=== PATIENT | female | born 1985 | race Caucasian/White ===

== ENCOUNTER → 2019-01-30 | Outpatient (CLI) | payer BC ==
[~2019-01-30] MED LIST: MACROBID100 M1 PO; METHERGINE0.2 M1 PO; Motrin,Rufen800 MG PO
== END | disposition home or self-care (01) ==
LOC: US 15:00
DX: Z34.81 Encounter for supervision of other normal pregnancy, first trimester (principal); Z3A.01 Less than 8 weeks gestation of pregnancy

== ENCOUNTER → 2019-02-22 | Outpatient (CLI) | payer BC | END | disposition home or self-care (01) | LOC: US 06:29 | DX: O02.1 Missed abortion (principal); N93.9 Abnormal uterine and vaginal bleeding, unspecified ==

== ENCOUNTER → 2019-02-27 | Day surgery (SDC) | payer BC ==
[~2019-02-27] VITALS: Ht 167.6 cm; Wt 54.9 kg
[2019-02-27 08:45] VITALS: BP 116/68
[2019-02-27 09:58] VITALS: BP 92/42
[2019-02-27 10:05] VITALS: BP 86/44
[2019-02-27 10:20] VITALS: BP 98/53
[2019-02-27 10:35] VITALS: BP 93/51
== END | disposition home or self-care (01) ==
LOC: SDC 02-26 11:00
PROVIDERS: Obstetrics & Gynecology
DX: O03.4 Incomplete spontaneous abortion without complication (principal); F17.210 Nicotine dependence, cigarettes, uncomplicated; Z79.899 Other long term (current) drug therapy; Z87.440 Personal history of urinary (tract) infections; Z72.89 Other problems related to lifestyle; Z3A.01 Less than 8 weeks gestation of pregnancy; Z98.890 Other specified postprocedural states; Z80.0 Family history of malignant neoplasm of digestive organs; Z80.49 Family history of malignant neoplasm of other genital organs; Z80.1 Family history of malignant neoplasm of trachea, bronchus and lung; Z82.49 Family history of ischemic heart disease and other diseases of the circulatory system; Z82.5 Family history of asthma and other chronic lower respiratory diseases

== ENCOUNTER → 2019-03-28 | Outpatient (CLI) | payer BC | END | disposition home or self-care (01) | LOC: US 17:00 | DX: N83.202 Unspecified ovarian cyst, left side (principal) ==

== ENCOUNTER → 2019-06-08 | Outpatient (CLI) | payer BC | END | disposition home or self-care (01) | LOC: US 05-15 16:00 | DX: N83.292 Other ovarian cyst, left side (principal) ==

== ENCOUNTER 2020-05-22 11:43 | Emergency (ER) | payer BC ==
[~2020-05-22] VITALS: Ht 167.6 cm; Wt 59.0 kg
[2020-05-22 12:34] LABS: COLOR YELLOW (YELLOW)
[2020-05-22 12:35] LABS: BILIRUBIN NEGATIVE; BLOOD NEGATIVE (NEGATIVE); CLARITY CLEAR (CLEAR); GLUCOSE NEGATIVE; KETONE NEGATIVE; LEUKO ESTERASE NEGATIVE (NEGATIVE); NITRITE NEGATIVE (NEGATIVE); UROBILINOGEN 0.2 E.U./dl (0.0-1.0)
[2020-05-22 12:37] LABS: BACTERIA 2+
[2020-05-22 12:40] LABS: BASO % 0.3 % (0.0-1.0); EOS # 0.1 10*3/uL (0.0-0.4); EOS % 0.9 % (1.0-4.0); HEMATOCRIT 38.9 % (37.0-47.0); LYMPH # 1.9 10*3/uL (1.3-4.4); LYMPH % 25.3 % (27.0-41.0); MEAN CELL VOLUME 88.4 fl (81.0-99.0); MEAN CORPUSCULAR HGB 29.1 pg (27.0-31.0); MEAN CORPUSCULAR HGB CONC 32.9 g/dl (33.0-37.0); MEAN PLATELET VOLUME 9.9 fl (9.6-12.3); MONO # 0.4 10*3/uL (0.1-1.0); MONO % 5.9 % (3.0-9.0); NEUT % 67.3 % (47.0-73.0); PLATELET COUNT AUTOMATED 286 10*3/uL (130-400); RED CELL DISTRI WIDTH 12.1 % (0-14.5); WHITE BLOOD COUNT 7.5 10*3/uL (4.8-10.8)
[2020-05-22 12:57] LABS: ALBUMIN 3.8 gm/dl (3.1-4.5); ALKALINE PHOSPHATASE 67 U/L (45-117); BUN 8 mg/dl (7-24); CHLORIDE 110 mmol/L (98-107); CREATININE 0.73 mg/dL (0.55-1.02); LIPASE 99 U/L (73-393); POTASSIUM 3.4 mmol/L (3.5-5.1); SGOT/AST 9 IU/L (3-35); SGPT/ALT 14 U/L (12-78); SODIUM 140 mmol/L (136-145)
[2020-05-22 12:58] LABS: TOTAL PROTEIN 7.2 gm/dL (6.4-8.2)
[2020-05-22] MEDS ORDERED: CEPHALEXIN500 M1 PO (13:30)
== END 2020-05-22 15:14 | disposition home or self-care (01) ==
LOC: ED 11:43
PROVIDERS: Physician Assistant
DX: O23.91 Unspecified genitourinary tract infection in pregnancy, first trimester (principal); Z20.2 Contact with and (suspected) exposure to infections with a predominantly sexual mode of transmission; Z3A.01 Less than 8 weeks gestation of pregnancy

== ENCOUNTER → 2020-06-18 | Outpatient (CLI) | payer BC ==
[~2020-06-18] MED LIST changes: +CEPHALEXIN500 M1 PO
== END | disposition home or self-care (01) ==
LOC: US 10:17
PROVIDERS: ATTEND Nurse Practitioner Women's Health
DX: O43.891 Other placental disorders, first trimester (principal); Z3A.10 10 weeks gestation of pregnancy

== ENCOUNTER → 2020-08-25 | Outpatient (CLI) | payer BC | END | disposition home or self-care (01) | LOC: US 11:00 | PROVIDERS: ATTEND Obstetrics & Gynecology | DX: O44.42 Low lying placenta NOS or without hemorrhage, second trimester (principal); Z3A.20 20 weeks gestation of pregnancy ==

== ENCOUNTER → 2020-10-27 | Outpatient (CLI) | payer BC | END | disposition home or self-care (01) | LOC: LAB 07:01 | PROVIDERS: ATTEND Nurse Practitioner Women's Health | DX: O99.810 Abnormal glucose complicating pregnancy (principal); Z3A.27 27 weeks gestation of pregnancy ==

== ENCOUNTER → 2020-11-12 | Outpatient (CLI) | payer BC | END | disposition home or self-care (01) | LOC: US 09:48 | PROVIDERS: ATTEND Nurse Practitioner Women's Health | DX: Z34.83 Encounter for supervision of other normal pregnancy, third trimester (principal); Z3A.30 30 weeks gestation of pregnancy ==

== ENCOUNTER → 2020-11-26 | Outpatient (CLI) | payer BC | END | disposition home or self-care (01) | LOC: US 01:16 | PROVIDERS: ATTEND Obstetrics & Gynecology | DX: Z34.03 Encounter for supervision of normal first pregnancy, third trimester (principal); Z3A.33 33 weeks gestation of pregnancy ==

== ENCOUNTER → 2020-12-05 | Outpatient (CLI) | payer BC | END | disposition home or self-care (01) | LOC: US 11:30 | PROVIDERS: ATTEND Obstetrics & Gynecology | DX: Z34.03 Encounter for supervision of normal first pregnancy, third trimester (principal); P05.9 Newborn affected by slow intrauterine growth, unspecified; Z3A.33 33 weeks gestation of pregnancy ==

== ENCOUNTER → 2020-12-12 | Outpatient (CLI) | payer BC | END | disposition home or self-care (01) | LOC: US 11:30 | PROVIDERS: ATTEND Obstetrics & Gynecology | DX: Z34.03 Encounter for supervision of normal first pregnancy, third trimester (principal); Z3A.34 34 weeks gestation of pregnancy ==

== ENCOUNTER → 2021-01-02 | Outpatient (CLI) | payer BC | END | disposition home or self-care (01) | LOC: COVID19 08:57 | PROVIDERS: ATTEND Obstetrics & Gynecology | DX: Z34.90 Encounter for supervision of normal pregnancy, unspecified, unspecified trimester (principal); Z3A.00 Weeks of gestation of pregnancy not specified; Z20.822 Contact with and (suspected) exposure to COVID-19 ==